=== PATIENT | male | born 1945 | race African-American/Black ===

== ENCOUNTER 2025-04-05 18:27 | Inpatient (IN) | payer MEDICARE, MEDICAID ==
[~2025-04-05 18:27] MED LIST: Iopamidol-370 76% 500 ML MDV (1 ML CHARGE) ONE
[2025-04-05 19:34] LABS: Bacteria/HPF 4+ HPF (None Seen); CAUTI Indications for Culture Alt mental st,lethar; Glucose, Urine (Dipstick) 50 mg/dL (Negative); Leukocyte 25 Leu/uL (Negative); Protein, Urine (Dipstick) Negative (Neg-Trace); RBC/HPF 0-3 HPF (0-3); Specific Gravity, Urine 1.008 (1.002-1.036); WBC/HPF 0-3 HPF (0-3)
[2025-04-05 19:35] LABS: #Basophils 0.04 10x3/uL (0.0-0.2); #Eosinophils 0.07 10x3/uL (0.0-0.7); #Monocytes 0.54 10x3/uL (0.11-0.59); #Neutrophils 8.42 10x3/uL (1.40-6.50); %Basophils 0.4 % (0.0-1.0); %Eosinophils 0.7 % (0.0-10.0); %Lymphocytes 10.5 % (21.0-51.0); %Monocytes 5.3 % (0.0-10.0); %Neutrophils 82.8 % (42.0-75.0); Hematocrit 38.2 % (42.0-52.0); Hemoglobin 12.3 g/dL (14.0-18.0); Mean Corpuscular Hemoglobin 24.7 pg (27.0-31.0); Mean Corpuscular Volume 76.7 fL (78.0-98.0); Platelet Count 213 10x3/uL (130-400); Red Blood Cell (RBC) Count 4.98 mill/uL (4.70-6.10); White Blood Cell (WBC) Count 10.17 10x3/uL (4.8-10.8)
[2025-04-05 19:35] LABS: Urine Culture Reflex No No
[2025-04-05 19:41] LABS: Cocaine Metabolite Screen Negative (Negative); THC/Cannabinoid Screen Negative (Negative); Tricyclic Screen Negative (Negative)
[2025-04-05 19:55] LABS: PTT 32.8 sec (22.9-36.1)
[2025-04-05 19:56] LABS: INR-International Normal Ratio 1.3; Prothrombin Time 16.0 sec (12.0-14.7)
[2025-04-05 20:01] LABS: Lipase 14 U/L (8-78)
[2025-04-05 20:03] LABS: ALT (SGPT) 13 U/L (Less than 45); AST (SGOT) 16 U/L (11-34); Albumin 3.1 g/dL (3.1-4.5); Alkaline Phosphatase 151 U/L (40-110); Anion Gap 15 mmol/L (10-20); BUN (Urea Nitrogen) 14 mg/dL (8.4-25.7); Bilirubin, Total 0.3 mg/dL (0.3-1.2); Calc. Creatinine Clearance 0 mL/min (70-130); Calcium 8.2 mg/dL (7.8-10.44); Carbon Dioxide 24 mmol/L (23-31); Chloride 105 mmol/L (98-107); Globulin 3.7 g/dL (2.4-3.5); Glucose 179 mg/dL (83-110); Potassium 3.5 mmol/L (3.5-5.1); Sodium 140 mmol/L (136-145)
[2025-04-05 20:04] LABS: Acetaminophen Less than 10 mcg/mL (Less than 10); Salicylate Less than 8.0 mg/dL (Less than 8.0)
[2025-04-05] MEDS ORDERED: cefTRIAXone (ROCEPHIN) 1 GM VIAL ONE (20:20)
[2025-04-05] MEDS ORDERED: Dextrose 50% Abboject 50 ML SYRINGE ONE (22:39)
[2025-04-05] MEDS ORDERED: Ondansetron PF 4 MG/2 ML Vial IVP PRN (23:50)
[2025-04-05] MEDS ORDERED: Acetaminophen 325 MG TAB PO PRN (23:50)
[2025-04-06] MEDS ORDERED: Glucagon 1 MG/ML KIT IM PRN
[2025-04-06] MEDS ORDERED: Dexamethasone 10 MG/ML VIAL ONE (00:26)
[2025-04-06] MEDS ORDERED: Dextrose 50% Abboject 50 ML SYRINGE ONE ×2 (00:29→04:47)
[2025-04-06 03:38] VITALS: BMI 26.2
[2025-04-06] MEDS: Dextrose 50% Abboject 50 ML SYRINGE SLOW IVP PRN (04:57)
[2025-04-06 08:40] LABS: #Basophils 0.04 10x3/uL (0.0-0.2); #Eosinophils 0.07 10x3/uL (0.0-0.7); #Monocytes 0.61 10x3/uL (0.11-0.59); #Neutrophils 5.95 10x3/uL (1.40-6.50); %Basophils 0.5 % (0.0-1.0); %Eosinophils 0.8 % (0.0-10.0); %Lymphocytes 19.3 % (21.0-51.0); %Monocytes 7.3 % (0.0-10.0); %Neutrophils 71.7 % (42.0-75.0); Hematocrit 39.0 % (42.0-52.0); Hemoglobin 12.9 g/dL (14.0-18.0); Mean Corpuscular Hemoglobin 24.8 pg (27.0-31.0); Mean Corpuscular Volume 75.0 fL (78.0-98.0); Platelet Count 220 10x3/uL (130-400); Red Blood Cell (RBC) Count 5.20 mill/uL (4.70-6.10); White Blood Cell (WBC) Count 8.30 10x3/uL (4.8-10.8)
[2025-04-06 08:55] LABS: Anion Gap 14 mmol/L (10-20); BUN (Urea Nitrogen) 9 mg/dL (8.4-25.7); Calc. Creatinine Clearance 95 mL/min (70-130); Calcium 8.8 mg/dL (7.8-10.44); Carbon Dioxide 25 mmol/L (23-31); Chloride 101 mmol/L (98-107); Glucose 149 mg/dL (83-110); Potassium 3.2 mmol/L (3.5-5.1); Sodium 137 mmol/L (136-145)
[2025-04-06] MEDS ORDERED: Apixaban 5 MG TAB ONE (09:11)
[2025-04-06] MEDS: Apixaban 5 MG TAB PO SCH (09:17)
[2025-04-06] MEDS: Potassium Chloride 10 MEQ/100 ML PREMIX BAG IVPB SCH (11:37)
[2025-04-06] MEDS: cefTRIAXone\\ROCEPHIN 1 GM in Sodium Chloride 0.9% 100 ML IVPB SCH (22:11)
[2025-04-07 04:23] LABS: #Basophils 0.06 10x3/uL (0.0-0.2); #Eosinophils 0.08 10x3/uL (0.0-0.7); #Monocytes 0.88 10x3/uL (0.11-0.59); #Neutrophils 5.67 10x3/uL (1.40-6.50); %Basophils 0.7 % (0.0-1.0); %Eosinophils 0.9 % (0.0-10.0); %Lymphocytes 25.7 % (21.0-51.0); %Monocytes 9.7 % (0.0-10.0); %Neutrophils 62.6 % (42.0-75.0); Hematocrit 37.6 % (42.0-52.0); Hemoglobin 12.1 g/dL (14.0-18.0); Mean Corpuscular Hemoglobin 24.6 pg (27.0-31.0); Mean Corpuscular Volume 76.4 fL (78.0-98.0); Platelet Count 252 10x3/uL (130-400); Red Blood Cell (RBC) Count 4.92 mill/uL (4.70-6.10); White Blood Cell (WBC) Count 9.06 10x3/uL (4.8-10.8)
[2025-04-07 05:50] LABS: Anion Gap 16 mmol/L (10-20); BUN (Urea Nitrogen) 11 mg/dL (8.4-25.7); Calc. Creatinine Clearance 68 mL/min (70-130); Calcium 9.0 mg/dL (7.8-10.44); Carbon Dioxide 22 mmol/L (23-31); Chloride 101 mmol/L (98-107); Glucose 183 mg/dL (83-110); Potassium 3.3 mmol/L (3.5-5.1); Sodium 136 mmol/L (136-145)
[2025-04-07] MEDS ORDERED: oxyCODONE 5 MG TAB PO PRN (07:47)
[2025-04-07] MEDS: Pregabalin 25 MG CAP PO SCH (09:24)
[2025-04-07] MEDS: Aspirin 81 mg Enteric Coated Tablet PO SCH (09:24)
[2025-04-07] MEDS: Pantoprazole 40 MG DR.TAB PO SCH (09:24)
[2025-04-07] MEDS: Potassium Chloride 10 MEQ in Premix 1 BAG IVPB SCH (11:21)
[2025-04-07] MEDS: levETIRAcetam 500 MG (5 mL) VIAL SLOW IVP SCH ×2 (14:31→21:17)
[2025-04-07 15:29] VITALS: BMI 26.2
[2025-04-07] MEDS: Melatonin 3 MG TAB PO SCH (21:51)
[2025-04-08 04:47] LABS: Anion Gap 13 mmol/L (10-20); BUN (Urea Nitrogen) 15 mg/dL (8.4-25.7); Calc. Creatinine Clearance 62 mL/min (70-130); Calcium 8.3 mg/dL (7.8-10.44); Carbon Dioxide 25 mmol/L (23-31); Chloride 104 mmol/L (98-107); Glucose 107 mg/dL (83-110); Magnesium 1.8 mg/dL (1.6-2.6); Potassium 3.0 mmol/L (3.5-5.1); Sodium 139 mmol/L (136-145)
[2025-04-08] MEDS ORDERED: PHENYTOIN SODIUM 200 MG PO SCH (09:00)
[2025-04-08] MEDS: levETIRAcetam 500 MG TAB PO SCH (10:06)
[2025-04-08 12:42] VITALS: BP 167/90; TEMP 98.5
== END 2025-04-08 17:27 | DRG 71 ==
LOC: ERS 18:27 → ERHOLD 23:50 → OBSVTOIN 04-06 05:19 → PCU 04-06 17:15
PROVIDERS: ADMIT Internal Medicine; ATTEND Emergency Medicine
PROC: 0T9B70Z Drainage of Bladder with Drainage Device, Via Natural or Artificial Opening (ICD-10-PCS; principal; 2025-04-06)
DX: G93.41 Metabolic encephalopathy (principal); N39.0 Urinary tract infection, site not specified; E11.649 Type 2 diabetes mellitus with hypoglycemia without coma; Z66 Do not resuscitate; E78.5 Hyperlipidemia, unspecified; I10 Essential (primary) hypertension; R56.9 Unspecified convulsions; R33.9 Retention of urine, unspecified; D32.9 Benign neoplasm of meninges, unspecified; B96.20 Unspecified Escherichia coli [E. coli] as the cause of diseases classified elsewhere; R82.5 Elevated urine levels of drugs, medicaments and biological substances; Z86.711 Personal history of pulmonary embolism; Z79.01 Long term (current) use of anticoagulants; Z79.899 Other long term (current) drug therapy
CPT/HCPCS: 36415; 36416; 51702; 70450; 71045; 74176; 80048; 80053; 80185; 80306; 80307; 81001; 83036; 83605; 83690; 83735; 84484; 85025; 85610; 85730; 87077; 87086; 87186; 93005; 95819; 96365; 96375; 96376; J0696; J1100; J1953; J2060; J3480; J3486; J7070; J7999; Q9967